=== PATIENT | female | born 2000 | race Caucasian/White ===

== ENCOUNTER 2019-10-05 11:10 | Emergency (ER) | payer OTHER ==
[~2019-10-05] VITALS: Ht 154.9 cm; Wt 61.4 kg
[~2019-10-05 11:10] MED LIST: BIRTH CONTROL PO; YASMIN 3 MG-0.01 TAB PO
[2019-10-05 11:31] VITALS: BP 134/80; TEMP 98.1
[2019-10-05 12:30] VITALS: PULSE 79
== END 2019-10-05 12:30 | disposition home or self-care (01) ==
LOC: COL.ER 11:10
DX: S80.12XA Contusion of left lower leg, initial encounter (principal); W21.32XA Struck by skate blades, initial encounter; Y93.51 Activity, roller skating (inline) and skateboarding